=== PATIENT | female | born 1980 | race Two or more races ===

== ENCOUNTER 2022-09-01 09:26 | Emergency (ER) | payer BC, OTHER ==
[~2022-09-01] VITALS: Ht 165.1 cm; Wt 54.4 kg
[2022-09-01] MEDS ORDERED: IV NORMAL SALINE 1000 ML BAG IV ONE (09:45)
[2022-09-01] MEDS ORDERED: MORPHINE SULFATE 2 MG/1 ML DISP.SYRIN IV ONE (09:45)
[2022-09-01] MEDS ORDERED: ONDANSETRON 4 MG/2 ML VIAL IV ONE (09:45)
[2022-09-01 10:02] LABS: HEMATOCRIT 39.1 % (31.2-41.9); MEAN CORPUSCULAR HEMOGLOBIN 24.6 uug (24.7-32.8); MEAN CORPUSCULAR VOLUME 76.4 fL (75.5-95.3); PLATELET COUNT (AUTO) 206 K/uL (179-408)
[2022-09-01 10:06] LABS: *URINE HCG, QUAL NEGATIVE (NEGATIVE)
[2022-09-01 10:09] LABS: *BILIRUBIN,URIN NEGATIVE (NEGATIVE); *CLARITY,URINE CLEAR (CLEAR); *COLOR,URINE YELLOW (YELLOW); *KETONES,URINE NEGATIVE (NEGATIVE); *UROBILINOGEN,URINE 0.2 E.U./dl (NORMAL); LEUKOCYTE ESTERASE ,URINE NEGATIVE (NEGATIVE); NITRITE, URINE NEGATIVE (NEGATIVE); UGLUCOSE NEGATIVE (NEGATIVE)
[2022-09-01 10:10] LABS: CREATININE 0.7 mg/dL (0.6-1.3); POTASSIUM 3.6 mmol/L (3.5-5.1)
[2022-09-01 10:13] LABS: *BLOOD, URINE TRACE (NEGATIVE)
[2022-09-01 10:15] LABS: BILIRUBIN,DIRECT 0.2 mg/dL (0.0-0.2); BILIRUBIN,TOTAL 0.7 mg/dL (0.2-1.0); TOTAL PROTEIN, SERUM 7.8 g/dL (6.4-8.2)
[2022-09-01] MEDS ORDERED: IV NORMAL SALINE 250 ML IV ONE (10:15)
[2022-09-01] MEDS ORDERED: SWABABLE VALVE TRANSFER SET EA MC ONE (10:15)
[2022-09-01] MEDS ORDERED: IOHEXOL 300MG/ML 100 ML INFUS..BTL ONE (10:15)
--- NOTE | 2022-09-01 11:50 | NUR ---
Patient discharged to home in stable condition. Written and verbal after care instructions given. Patient verbalizes understanding of instructions. IV removed. Stressed follow up or return to ER for worsening s/s.
[2022-09-01 12:09] VITALS: BP 112/62
[2022-09-01 13:54] LABS: BACTERIA,URINE NONE SEEN /HPF (NONE SEEN); RBC,URINE NONE SEEN /HPF (0-3); SQUAMOUS EPITHELIAL CELL,UR NONE SEEN /HPF (NONE SEEN); WBC,URINE NONE SEEN /HPF (0-3)
== END 2022-09-01 11:50 | disposition home or self-care (01) ==
LOC: ER 09:26
DX: R10.33 Periumbilical pain (principal); Z88.8 Allergy status to other drugs, medicaments and biological substances
CPT/HCPCS: 99285; 74177; 96360; 80076; 80048; 81001; 84703; 83690; 85025; 36415; Q9967; J7040; A4663